=== PATIENT | female | born 1955 | race American Indian/Alaskan Native ===

== ENCOUNTER 2017-07-05 09:37 | Emergency (ER) | payer OTHER ==
[2017-07-05] MEDS ORDERED: TYLENOL PO ONE (10:31)
[2017-07-05] MEDS ORDERED: TYLENOL ONE (10:33)
--- NOTE | 2017-07-05 11:12 | XRay Report ---
ROUTINE CHEST, TWO VIEWS: HISTORY: Cough. The trachea, heart, mediastinal contour, lung degroot and bony thorax are unremarkable. IMPRESSION: Unremarkable chest x-ray.
--- NOTE | 2017-07-05 12:45 | Emergency Department Report ---
HPI - General Chief Complaint: Upper Respiratory Infection Time Seen by Provider: 07/05/17 12:21 - HPI HPI: Room 5 The patient is a 61-year-old female presenting with a chief complaint of cough. The patient stated for one week she's had a cough occasionally productive of sputum (patient states she hasn't seen the color), chest pain and back pain with coughing and shortness of breath. Patient denies a sore throat but states her throat has been scratchy. Patient was admitted to occasional shortness of nasal congestion. Patient denies rhinorrhea. Patient is uncertain if she's had a fever. The patient states she has been in contact with others at her workplace with the same symptoms. The patient gives her pain score of 7/10 Location: [See above] Duration: One week Quality: Soreness Severity: 7/10 Modifying factors: [see above] Context: [see above] Mode of transportation: [not driving] ED Past Medical Hx - Past Medical History Hx Hypertension: Yes Hx Headaches / Migraines: Yes Hx COPD: Yes Additional medical history: high cholesterol - Surgical History Additional Surgical History: 3, foot surgery - Family History Family history: no significant - Social History Smoking Status: Former Smoker (none 2 years) Substance Use Type: None (denies illicit drug use) - Medications Home Medications: Home Medications Medication Instructions Recorded Confirmed Last Taken Type Benzonatate [Tessalon Perle] 100 mg PO TID PRN #30 capsule 07/05/17 Unknown Rx HYDROcodone/APAP 5-325 [[place] 1 - 2 each PO Q6HR PRN #14 tablet 07/05/17 Unknown Rx 5/325] Ibuprofen [Motrin] 800 mg PO Q8HR PRN #20 tablet 07/05/17 Unknown Rx Levofloxacin [Levaquin] 750 mg PO QDAY #10 tablet 07/05/17 Unknown Rx ED Review of Systems ROS: Stated complaint: CP Other details as noted in HPI Constitutional: fever (?) ENT: throat pain (scratchy throat), congestion Respiratory: cough, shortness of breath Musculoskeletal: back pain, myalgia Neurological: headache, paresthesias (tingling all over) Physical Exam - Physical Exam Vital Signs: Vital Signs 07/05/17 10:29 Temperature 101 F H Pulse Rate 126 H Respiratory 28 H Rate Blood Pressure 155/86 O2 Sat by Pulse 94 Oximetry Physical Exam: GENERAL: The patient is well-developed well-nourished female lying on stretcher not appearing to be in acute distress. [] HEENT: Normocephalic. Atraumatic. Extraocular motions are intact. There is tenderness to percussion of the left maxillary and right frontal sinus. Oropharynx clear. TMs clear bilaterally NECK: Supple. No meningitic signs are noted. Trachea midline CHEST/LUNGS: Clear to auscultation. There is no respiratory distress noted. HEART/CARDIOVASCULAR: Regular. There is no tachycardia. There is no gallop rub or murmur. ABDOMEN: Abdomen is soft, nontender. Patient has normal bowel sounds. There is no abdominal distention. SKIN: There is no rash. There is no edema. There is no diaphoresis. NEURO: The patient is awake, alert, and oriented. The patient is cooperative. The patient has normal speech MUSCULOSKELETAL: There is no evidence of acute injury. ED Course Vital Signs 07/05/17 10:29 Temperature 101 F H Pulse Rate 126 H Respiratory 28 H Rate Blood Pressure 155/86 O2 Sat by Pulse 94 Oximetry - Reevaluation(s) Reevaluation #1: 07/05/17 14:50 Heart rate improved to 98 after IV fluids and Motrin ED Medical Decision Making - Lab Data Influenza negative - EKG Data -: EKG Interpreted by Me EKG shows normal: sinus rhythm Rate: tachycardia - EKG Data When compared to previous EKG there are: previous EKG unavailable Interpretation: other (left bundle branch block) - Radiology Data Radiology results: report reviewed (chest x-ray), image reviewed (chest x-ray) interpreted by me: Chest x-ray-no focal infiltrates, no pneumothorax - Differential Diagnosis influenza, pneumonia, bronchitis, sinusitis Critical care attestation.: If time is entered above; I have spent that time in minutes in the direct care of this critically ill patient, excluding procedure time. ED Disposition Clinical Impression: Acute sinusitis, Acute bronchitis Disposition: - TO HOME OR SELFCARE Is pt being admited?: No Does the pt Need Aspirin: No Condition: Stable Instructions: Acute Bronchitis (ED), Sinusitis (ED) Additional Instructions: Return to the emergency department immediately should you develop worsening symptoms, fever, inability to tolerate food or liquid or any other concerns. Prescriptions: Benzonatate [Tessalon Perle] 100 mg PO TID PRN #30 capsule PRN Reason: Cough HYDROcodone/APAP 5-325 [[place] 5/325] 1 - 2 each PO Q6HR PRN #14 tablet PRN Reason: Pain Ibuprofen [Motrin] 800 mg PO Q8HR PRN #20 tablet PRN Reason: Pain Levofloxacin [Levaquin] 750 mg PO QDAY #10 tablet Referrals: PRIMARY CARE, [Primary Care Provider] - 3-5 Days Time of Disposition: 14:52
[2017-07-05] MEDS ORDERED: ZOFRAN IV ONE (12:50)
[2017-07-05] MEDS ORDERED: MORPHINE IV ONE (12:50)
[2017-07-05] MEDS ORDERED: NACL 0.9% 1000 ML 1,000 ML IV ONE ×3 (12:50→18:44)
[2017-07-05] MEDS ORDERED: MOTRIN PO ONE (12:51)
[2017-07-05] MEDS ORDERED: NORCO 5/325 PO ONE (13:41)
[2017-07-05] MEDS ORDERED: LEVAQUIN PO ONE (14:49)
[2017-07-05 16:40] LABS: Basophils # (Auto) 0.1 K/mm3 (0.0-0.1); Basophils % (Auto) 1.1 % (0.0-1.8); Eosinophils # (Auto) 0.1 K/mm3 (0.0-0.4); Eosinophils % (Auto) 1.3 % (0.0-4.3); Hematocrit 33.8 % (30.3-42.9); Hemoglobin 11.6 gm/dl (10.1-14.3); Lymphocytes # (Auto) 0.7 K/mm3 (1.2-5.4); Lymphocytes % (Auto) 14.6 % (13.4-35.0); Mean Corpuscular HGB Conc 34 % (30-34); Mean Corpuscular Hemoglobin 30 pg (28-32); Mean Corpuscular Volume 87 fl (79-97); Monocytes # (Auto) 0.6 K/mm3 (0.0-0.8); Platelet Count 229 K/mm3 (140-440); Red Blood Count 3.88 M/mm3 (3.65-5.03); Red Cell Distribution Width 13.9 % (13.2-15.2)
[2017-07-05 17:05] LABS: Alanine Aminotransferase 11 units/L (7-56); Albumin 3.8 g/dL (3.9-5); BUN/Creatinine Ratio 14; Blood Urea Nitrogen 11 mg/dL (7-17); Calcium 8.8 mg/dL (8.4-10.2); Hemolysis Index 0
--- NOTE | 2017-07-05 18:50 | History and Physical Report ---
History of Present Illness Chief complaint: sore throat,coughing History of present illness: 61 YO Female with HTN, COPD, Migraine Headache, HLD presents to ED for evaluation of cough and sore throat. Pt seen and evaluated in ED and treated with supportive care with resolution of symptoms. Pt medically optimized and back to usual state of health. Pt discharged home and instructed to f/u pcp 1wk. Past History Past Medical History: COPD, hypertension, hyperlipidemia Past Surgical History: Social history: single. denies: smoking, alcohol abuse, prescription drug abuse Family history: hypertension Medications and Allergies Allergies Allergy/AdvReac Type Severity Reaction Status Date / Time No Known Allergies Allergy Unverified 07/05/17 10:28 Home Medications Medication Instructions Recorded Confirmed Last Taken Type Albuterol Sulfate [Albuterol 0.63% 0.63 mg IH TID PRN #1 box 07/05/17 Unknown Rx NEBS] Benzonatate [Tessalon Perle] 100 mg PO TID PRN #30 capsule 07/05/17 Unknown Rx Budesonide [Pulmicort] 0.25 mg IH Q12HR #1 box 07/05/17 Unknown Rx Ciprofloxacin HCl [Ciprofloxacin 500 mg PO Q12H #14 tab 07/05/17 Unknown Rx TAB] HYDROcodone/APAP 5-325 [[place] 1 - 2 each PO Q6HR PRN #14 tablet 07/05/17 Unknown Rx 5/325] Ibuprofen [Motrin] 800 mg PO Q8HR PRN #20 tablet 07/05/17 Unknown Rx Ipratropium [Atrovent NEB] 0.5 mg IH Q8HRT PRN #1 box 07/05/17 Unknown Rx Levofloxacin [Levaquin] 750 mg PO QDAY #10 tablet 07/05/17 Unknown Rx Nebulizer [Compact Compressor 1 each MC DAILY PRN #1 each 07/05/17 Unknown Rx Nebulizer] Active Meds: Active Medications Sodium Chloride (Nacl 0.9% 1000 Ml) 1,000 mls @ 999 mls/hr IV BOLUS ONE Stop: 07/05/17 19:44 Review of Systems Constitutional: no weight loss, no weight gain, no fever, no chills Ears, nose, mouth and throat: sore throat, no ear pain, no ear discharge, no tinnitis, no decreased hearing, no nose pain Breasts: no change in shape, no swelling, no mass Cardiovascular: no chest pain, no orthopnea, no palpitations, no rapid/ irregular heart beat, no edema, no syncope Respiratory: cough, cough with sputum, no excessive sputum, no hemoptysis, no shortness of breath, no dyspnea on exertion Gastrointestinal: no abdominal pain, no nausea, no vomiting, no diarrhea Genitourinary Female: no dysmenorrhea, no pelvic pain, no flank pain, no menorrhagia, no dysuria Rectal: no pain, no incontinence, no bleeding Musculoskeletal: no neck stiffness, no neck pain, no shooting arm pain, no arm numbness/tingling Integumentary: no rash, no pruritis, no redness, no sores, no wounds Neurological: no head injury, no transient paralysis, no paralysis, no weakness , no parathesias, no numbness Psychiatric: no anxiety, no memory loss, no change in sleep habits, no sleep disturbances, no insomnia Endocrine: no cold intolerance, no heat intolerance, no polyphagia, no excessive thirst, no polydipsia Hematologic/Lymphatic: no easy bruising, no easy bleeding, no lymphadenopathy, no lymphedema Allergic/Immunologic: no urticaria, no allergic rhinitis, no wheezing Exam - Constitutional Vitals: Temp Pulse Resp BP Pulse Ox 100.8 F H 85 19 98/60 100 07/05/17 13:51 07/05/17 17:54 07/05/17 18:28 07/05/17 17:54 07/05/17 12:00 General appearance: Present: no acute distress, well-nourished - EENT Eyes: Present: PERRL ENT: hearing intact, clear oral mucosa - Neck Neck: Present: supple, normal ROM - Respiratory Respiratory effort: normal Respiratory: bilateral: CTA - Cardiovascular Heart Sounds: Present: S1 & S2. Absent: rub, click - Extremities Extremities: pulses symmetrical, No edema Peripheral Pulses: within normal limits - Abdominal General gastrointestinal: Present: soft, non-tender, non-distended, normal bowel sounds Female genitourinary: Present: normal - Integumentary Integumentary: Present: clear, warm, dry - Musculoskeletal Musculoskeletal: gait normal, strength equal bilaterally - Psychiatric Psychiatric: appropriate mood/affect, intact judgment & insight - Neurologic Neurologic: CNII-XII intact, moves all extremities Results - Labs CBC & Chem 7: 07/05/17 16:20 07/05/17 16:20 Labs: Abnormal lab results 07/05/17 07/05/17 07/05/17 Range/Units 16:20 16:20 16:20 [place] % (Auto) 12.0 H (0.0-7.3) % Lymph # 0.7 L (1.2-5.4) K/mm3 Seg Neutrophils % 71.0 H (40.0-70.0) % Lactic Acid 0.60 L (0.7-2.0) mmol/L Albumin 3.8 L (3.9-5) g/dL Assessment and Plan - Patient Problems (1) Viral pharyngitis Status: Acute Plan to address problem: F/U pcp 1wk, nebulizer therapy, empiric abx, resume home medication,
--- NOTE | 2017-07-05 19:14 | Emergency Department Report ---
Blank Doc - Documentation Documentation: Patient initially seen by Dr. Yates and prepped for discharge. Prior to discharge nurse informed me that patient's blood pressure was still low systolic in the 80s. Additional normal saline ordered with improvement in systolic pressure to the 90s. Patient's initial tachycardia has improved. Patient received by mouth Levaquin prior to my evaluation. Patient reports feeling somewhat better and she did take her blood pressure medication this morning. The patient had plans to return to [place] via car today. I advised admission to the hospital for further monitoring and management to assure blood pressure stabilization and symptom improvement. Discussed with hospitalist Dr. Foster
[2017-07-05] MEDS ORDERED: DUONEB *Not for PRN Use IH ONE (19:17)
[2017-07-05 19:36] LABS: Bilirubin,Urine NEG (Negative); Blood,Urine NEG (Negative); Color,Urine Straw (Yellow); Mucus,Urine FEW /HPF; Nitrite,Urine NEG (Negative); Protein,Urine <15 mg/dL mg/dL (Negative); Urobilinogen,Urine < 2.0 mg/dL (<2.0)
[2017-07-05 20:50] VITALS: BP 107/71
== END 2017-07-05 21:08 | disposition home or self-care (01) ==
LOC: ED 09:37
DX: J01.10 Acute frontal sinusitis, unspecified (principal); J01.00 Acute maxillary sinusitis, unspecified; J20.9 Acute bronchitis, unspecified; I10 Essential (primary) hypertension; G43.909 Migraine, unspecified, not intractable, without status migrainosus; J44.9 Chronic obstructive pulmonary disease, unspecified; E78.00 Pure hypercholesterolemia, unspecified; Z87.891 Personal history of nicotine dependence
CPT/HCPCS: 36415; 71046; 80053; 81001; 82140; 85025; 85379; 87040; 87086; 87400; 93005; 93010; 94640; 96361; 96374; 99284; J2405; J7030; J2270